=== PATIENT | female | born 1950 | race Caucasian/White ===

== ENCOUNTER 2017-01-31 16:39 | Inpatient (IN) | payer MEDICARE, OTHER ==
[~2017-01-31] VITALS: Ht 139.7 cm; Wt 40.8 kg
[2017-01-31] MEDS ORDERED: LEVAQUIN500 MG PO (18:32)
[2017-01-31] MEDS ORDERED: PREDNISONE 10 M10 MG PO (18:32)
[2017-01-31] MEDS ORDERED: IPRAT-ALBUT 0.5-3 ML INH (18:33)
[2017-01-31] MEDS ORDERED: DILTIAZEM ER240 M2 PO (18:33)
[2017-01-31] MEDS ORDERED: PROAIR HFA8.5 GM INH (18:34)
[2017-01-31] MEDS ORDERED: ASPIRIN81 MG PO (18:35)
[2017-01-31] MEDS ORDERED: LOVASTATIN20 MG PO (18:35)
[2017-01-31 19:40] LABS: HEMOGLOBIN 13.2 gm/dl (12.3-15.3); RED BLOOD COUNT 4.24 M/UL (4.00-5.10); WHITE BLOOD COUNT 4.9 K/UL (4.5-11.0)
[2017-01-31 19:58] LABS: BUN/CREATININE RATIO 45 (0-10)
[2017-02-01 07:04] LABS: HEMOGLOBIN 12.4 gm/dl (12.3-15.3); RED BLOOD COUNT 3.98 M/UL (4.00-5.10)
[2017-02-01 07:05] LABS: WHITE BLOOD COUNT 6.6 K/UL (4.5-11.0)
[2017-02-01 07:26] LABS: BUN/CREATININE RATIO 57 (0-10)
[2017-02-02 03:37] LABS: RED BLOOD COUNT 3.92 M/UL (4.00-5.10); WHITE BLOOD COUNT 5.5 K/UL (4.5-11.0)
[2017-02-02 03:56] LABS: BUN/CREATININE RATIO 67 (0-10)
[2017-02-03 04:24] LABS: HEMOGLOBIN 12.1 gm/dl (12.3-15.3); RED BLOOD COUNT 3.93 M/UL (4.00-5.10); WHITE BLOOD COUNT 5.2 K/UL (4.5-11.0)
[2017-02-03 04:45] LABS: BUN/CREATININE RATIO 77 (0-10)
[2017-02-04 03:38] LABS: RED BLOOD COUNT 3.92 M/UL (4.00-5.10); WHITE BLOOD COUNT 4.6 K/UL (4.5-11.0)
[2017-02-04 03:57] LABS: BUN/CREATININE RATIO 65 (0-10)
[2017-02-06 03:15] LABS: HEMOGLOBIN 11.2 gm/dl (12.3-15.3); RED BLOOD COUNT 3.61 M/UL (4.00-5.10); WHITE BLOOD COUNT 4.4 K/UL (4.5-11.0)
[2017-02-06 03:48] LABS: BUN/CREATININE RATIO 73 (0-10)
[2017-02-06] MEDS ORDERED: ENSURE LIQUID237 ML PO (13:21)
[2017-02-06] MEDS ORDERED: LANOXIN TAB0.125 MG PO (13:21)
== END 2017-02-06 19:45 | DRG 208 ==
LOC: CCU 16:39 → PROG CARE 18:24 → CCU 18:24 → PROG CARE 02-03 15:27
PROVIDERS: Emergency Medicine; ADMIT Internal Medicine
PROC: 5A1945Z Respiratory Ventilation, 24-96 Consecutive Hours (ICD-10-PCS; principal; 2017-01-31)
DX: J96.21 Acute and chronic respiratory failure with hypoxia (principal); J44.1 Chronic obstructive pulmonary disease with (acute) exacerbation; E87.2 Acidosis; E44.0 Moderate protein-calorie malnutrition; J96.22 Acute and chronic respiratory failure with hypercapnia; D69.6 Thrombocytopenia, unspecified; I95.9 Hypotension, unspecified; R00.0 Tachycardia, unspecified; I25.10 Atherosclerotic heart disease of native coronary artery without angina pectoris; F17.210 Nicotine dependence, cigarettes, uncomplicated; I25.2 Old myocardial infarction; I10 Essential (primary) hypertension; Z99.81 Dependence on supplemental oxygen; Z95.5 Presence of coronary angioplasty implant and graft; Z88.8 Allergy status to other drugs, medicaments and biological substances; Z79.82 Long term (current) use of aspirin; Z79.52 Long term (current) use of systemic steroids; Z79.899 Other long term (current) drug therapy; I27.2 Other secondary pulmonary hypertension
CPT/HCPCS: 36415; 36600; 71010; 80048; 80053; 82550; 82553; 82803; 82962; 83605; 83735; 84484; 85025; 85027; 87040; 87070; 87205; 94002; 94003; 94640; 94660; 97110; 97116; 97530; C9113; J1817; J1956; J2920; J7030